=== PATIENT | male | born 1945 | race Two or more races ===

== ENCOUNTER → 2020-09-25 22:04 | Outpatient (CLI) | payer OTHER ==
[~2020-09-25 22:04] MED LIST: LIPITOR20 MG
== END | disposition home or self-care (01) ==
LOC: PPH VACUNA 22:04
PROVIDERS: ATTEND Emergency Medicine Pediatric Emergency Medicine
DX: Z23 Encounter for immunization (principal)

== ENCOUNTER 2020-11-25 07:33 | Outpatient (CLI) | payer OTHER | END 2020-11-25 07:39 | disposition home or self-care (01) | LOC: RAD 07:33 | PROVIDERS: ATTEND Ophthalmology | DX: R07.89 Other chest pain (principal) ==

== ENCOUNTER 2020-12-08 07:00 | Outpatient (CLI) | payer OTHER | END 2020-12-08 17:34 | disposition home or self-care (01) | LOC: LAB 07:00 | DX: D64.89 Other specified anemias (principal); N39.0 Urinary tract infection, site not specified; R53.1 Weakness; D65 Disseminated intravascular coagulation [defibrination syndrome] ==

== ENCOUNTER → 2021-10-19 | Outpatient (CLI) | payer OTHER | END | disposition home or self-care (01) | LOC: LAB 09:38 | DX: D64.9 Anemia, unspecified (principal); N39.0 Urinary tract infection, site not specified; R53.81 Other malaise; D65 Disseminated intravascular coagulation [defibrination syndrome] ==

== ENCOUNTER 2021-10-20 08:35 | Outpatient (CLI) | payer OTHER | END 2021-10-20 08:38 | disposition home or self-care (01) | LOC: RAD 08:35 | DX: R07.89 Other chest pain (principal) ==

== ENCOUNTER 2022-11-28 13:02 | Emergency (ER) | payer OTHER ==
[~2022-11-28] VITALS: Ht 172.7 cm; Wt 68.0 kg
[2022-11-28] MEDS ORDERED: LOTREL 5-10 MG1 CAP (13:16)
== END 2022-11-28 16:00 | disposition home or self-care (01) ==
LOC: ER 13:02
DX: N40.0 Benign prostatic hyperplasia without lower urinary tract symptoms (principal); R33.9 Retention of urine, unspecified

== ENCOUNTER 2022-11-29 08:38 | Emergency (ER) | payer OTHER ==
[~2022-11-29] VITALS: Ht 172.7 cm; Wt 68.0 kg
[~2022-11-29 08:38] MED LIST changes: +LOTREL 5-10 MG1 CAP
== END 2022-11-29 09:51 | disposition home or self-care (01) ==
LOC: ER 08:38
DX: R33.9 Retention of urine, unspecified (principal); N40.0 Benign prostatic hyperplasia without lower urinary tract symptoms; I10 Essential (primary) hypertension

== ENCOUNTER 2022-12-08 09:44 | Outpatient (CLI) | payer OTHER | END 2022-12-08 09:53 | disposition home or self-care (01) | LOC: RAD 09:44 | PROVIDERS: ATTEND Urology | DX: I11.9 Hypertensive heart disease without heart failure (principal) ==

== ENCOUNTER 2022-12-14 07:26 | Inpatient (IN) | payer OTHER ==
[~2022-12-14] VITALS: Ht 172.7 cm; Wt 68.0 kg
[~2022-12-14 07:26] MED LIST changes: +CARDURA1 MG PO; +PROSCAR5 MG PO
[2022-12-15] MEDS ORDERED: DOXAZOSIN MESYLA2 MG (13:05)
== END 2022-12-17 14:32 | disposition home or self-care (01) | DRG 713 ==
LOC: SURH 12-15 07:00 → O/R 12-15 10:30 → SURH 12-15 14:35 → SURG 12-15 19:42 → SURH 12-15 21:16 → O/R 12-16 00:28 → SURH 12-16 11:54 → O/R 12-16 13:20 → SURH 12-16 14:26
PROVIDERS: ADMIT Urology; ATTEND Urology
PROC: 0VT08ZZ Resection of Prostate, Via Natural or Artificial Opening Endoscopic (ICD-10-PCS; principal; 2022-12-15 07:00)
PROC: 30233N1 Transfusion of Nonautologous Red Blood Cells into Peripheral Vein, Percutaneous Approach (ICD-10-PCS; 2022-12-16)
DX: N40.1 Benign prostatic hyperplasia with lower urinary tract symptoms (principal); D65 Disseminated intravascular coagulation [defibrination syndrome]; D50.0 Iron deficiency anemia secondary to blood loss (chronic); R33.8 Other retention of urine; N41.9 Inflammatory disease of prostate, unspecified

== ENCOUNTER → 2023-04-20 | Emergency (ER) | payer OTHER ==
[~2023-04-20] VITALS: Ht 170.2 cm; Wt 61.2 kg
[~2023-04-20] MED LIST changes: +DOXAZOSIN MESYLA2 MG; +METFORMIN HCL500 M2 PO; +SUPRAX400 M1 PO
== END | disposition home or self-care (01) ==
LOC: ER 09:05
PROVIDERS: General Practice
DX: R50.9 Fever, unspecified (principal); R73.9 Hyperglycemia, unspecified; Z20.822 Contact with and (suspected) exposure to COVID-19
CPT/HCPCS: 36415; 96372; 99283; J1100

== ENCOUNTER 2023-04-25 09:12 | Emergency (ER) | payer OTHER ==
[~2023-04-25] VITALS: Ht 172.7 cm; Wt 65.8 kg
[~2023-04-25 09:12] MED LIST changes: -SUPRAX400 M1 PO
[2023-04-25] MEDS ORDERED: SUPRAX400 M1 PO (18:46)
== END 2023-04-25 19:27 | disposition home or self-care (01) ==
LOC: ER 09:12
PROVIDERS: Emergency Medicine
DX: N41.8 Other inflammatory diseases of prostate (principal)
CPT/HCPCS: 70210; 71046; 74176; 96365; 96366; 96372; 99284; J1885; J7030

== ENCOUNTER 2023-05-26 10:09 | Outpatient (CLI) | payer OTHER ==
[~2023-05-26 10:09] MED LIST changes: +SUPRAX400 M1 PO
== END 2023-05-26 10:13 | disposition home or self-care (01) ==
LOC: RAD 10:09
PROVIDERS: ATTEND Internal Medicine
DX: J20.9 Acute bronchitis, unspecified (principal)

== ENCOUNTER 2023-06-10 09:39 | Outpatient (CLI) | payer OTHER | END 2023-06-10 09:50 | disposition home or self-care (01) | LOC: TOM 09:39 | PROVIDERS: ATTEND Internal Medicine | DX: H53.2 Diplopia (principal); R51.9 Headache, unspecified ==